=== PATIENT | female | born 1960 | race African-American/Black ===

== ENCOUNTER 2023-06-20 17:28 | Emergency (ER) | payer OTHER ==
[~2023-06-20] VITALS: Ht 167.6 cm; Wt 67.7 kg
[2023-06-20 18:47] VITALS: BP 165/91; PULSE 62; RESP 18; TEMP 96.9; O2SAT 100
[2023-06-20] MEDS: ONDANSETRON ODT 4 MG TAB PO ONE (19:47)
[2023-06-20] MEDS: HYDROcodone-ACET 5/325MG TAB PO ONE (19:47)
[2023-06-20] MEDS ORDERED: ACE3T PO (21:27)
[2023-06-20] MEDS ORDERED: CYCL-837 PO (21:27)
[2023-06-21] MEDS ORDERED: HYDR-4902 PO (19:08)
[2023-06-21] MEDS ORDERED: PERCOT PO (20:41)
== END 2023-06-20 22:14 | disposition home or self-care (01) ==
LOC: ER 17:28
DX: S16.1XXA Strain of muscle, fascia and tendon at neck level, initial encounter (principal); S29.012A Strain of muscle and tendon of back wall of thorax, initial encounter; S39.012A Strain of muscle, fascia and tendon of lower back, initial encounter; R51.9 Headache, unspecified; Z88.8 Allergy status to other drugs, medicaments and biological substances; Z79.899 Other long term (current) drug therapy; W01.0XXA Fall on same level from slipping, tripping and stumbling without subsequent striking against object, initial encounter; Y93.89 Activity, other specified; Y92.89 Other specified places as the place of occurrence of the external cause; Y99.8 Other external cause status
CPT/HCPCS: 70450; 72070; 72100; 72125; 99284; Q0162